=== PATIENT | female | born 1995 | race Caucasian/White ===

== ENCOUNTER 2019-07-15 13:15 | Outpatient (CLI) | payer BC, SELFPAY ==
--- NOTE | 2019-07-15 13:20 | US_ITS ---
WS: [id number] ULTRASOUND TRANSABDOMINAL HISTORY: ANATOMY/SUPERVISION NORMAL ,MULTIPAROUS : 2 PARA: 1 COMPARISON: None available. FINDINGS: Cervical length is 4.7 cm; closed. Placenta grade 0, anterior cardiac tones 147 BPM. Viable fetus normal amniotic fluid indices. Biparietal diameter measures 4.5 cm, equals 19w4d. Head circumference measures 17.0 cm, equals 19w5d. Abdomen circumference measures 13.9 cm, equals 19w2d. Femur length measures 3.0 cm, equals 19w3d. Estimated gestational age 19w4d An estimated delivery 12/05/2019. Estimated weight 290 g. US/US OB >= 14 weeks fetus 11715 IMPRESSION: 1. Single live intrauterine uterines . Estimated gestational age 19w 4d and estimated delivery 12/05/2019.
== END 2019-07-15 13:16 | disposition home or self-care (01) ==
LOC: US 13:16
PROVIDERS: Family Provider Electrodiagnostic Medicine; Visit Provider Family Medicine
DX: Z34.92 Encounter for supervision of normal pregnancy, unspecified, second trimester (principal); Z3A.19 19 weeks gestation of pregnancy; Z36.9 Encounter for antenatal screening, unspecified
CPT/HCPCS: 76805

== ENCOUNTER 2019-09-02 17:12 | Outpatient (CLI) | payer BC, MEDICAID, SELFPAY ==
[2019-09-02 17:32] VITALS: BP 119/71; PULSE 100; RESP 17; TEMP 36.4
[2019-09-02 17:47] VITALS: BMI 34.6
[2019-09-02] MEDS: cefTRIAXone 1,000 MG in sodium chloride 0.9% (plus) 50 ML 100 MG IV (18:14)
[2019-09-02] MEDS: lactated ringers 1,000 ML 999 ML IV (18:15)
[2019-09-02] MEDS: ondansetron 2 mg/ML SDV 2 mL 4 MG IVP (18:16)
[2019-09-02 18:41] LABS: Basophils % 0.3 %; Eosinophils # 0.1 10^3/uL (0.0-0.8); Eosinophils % 0.7 %; Hematocrit 33.4 % (37.0-47.0); Hemoglobin 10.8 g/dL (11.5-15.3); Lymphocytes # 1.5 10^3/uL (0.8-4.8); Lymphocytes % 17.2 %; Mean Corpuscular HGB Conc 32.3 g/dL (30.0-36.0); Mean Corpuscular Hemoglobin 28.5 pg (28.0-34.0); Mean Corpuscular Volume 88.1 fL (81-99); Mean Platelet Volume 9.3 fL (7.4-10.4); Monocytes # 0.8 10^3/uL (0.2-0.9); Monocytes % 9.4 %; Neutrophils # 6.3 10^3/uL (1.8-7.7); Neutrophils % 71.2 %; Nucleated Red Blood Cells % 0 %; Platelet Count 240 10^3/cmm (130-400); Red Blood Count 3.79 10^6/uL (4.1-5.3); Red Cell Distribution Width 14.1 % (12.1-15.1); White Blood Count 8.9 10^3/uL (4.0-10.0)
--- NOTE | 2019-09-02 19:24 | PC.NURSE ---
Pt. watching t.v. and drinking water.
[2019-09-02 19:55] LABS: Alanine Aminotransferase 23 U/L (0-33); Albumin Level 3.5 g/dL (3.5-5.2); Alkaline Phosphatase 137 IU/L (35-105); Anion Gap 16.1 (5-19); Aspartate Amino Transferase 21 U/L (0-32); Blood Urea Nitrogen 8 mg/dL (6-20); Carbon Dioxide 19 mmol/L (22-29); Chloride 103 mmol/L (98-107); Glomerular Filtration Rate 150.3 mL/min (90-130); Glucose 76 mg/dL (65-115); Osmolality Calculated 275 mOsm/kg (285-295); Potassium 3.1 mmol/L (3.5-5.1); Sodium 135 mmol/L (136-145); Total Bilirubin 0.4 mg/dL (0.15-1.2); Total Protein 6.5 g/dL (6.6-8.7)
[2019-09-02 21:15] VITALS: BP 137/73; RESP 16; TEMP 36.8
--- NOTE | 2019-09-02 21:35 | PC.NURSE ---
Discharge instructions given.
--- NOTE | 2019-09-02 21:36 | PC.NURSE ---
Pt. was instructed to take a warm shower, may use heating pad and take Tylenol for discomfort.
== END 2019-09-02 21:17 | disposition home or self-care (01) ==
LOC: OPOB 17:24 → OBGYN 21:12
PROVIDERS: Family Provider Electrodiagnostic Medicine; Visit Provider Family Medicine
DX: O21.9 Vomiting of pregnancy, unspecified (principal); R19.7 Diarrhea, unspecified
CPT/HCPCS: 36415; 59025; 80053; 85025; 86141; 96374; 96375; 99211; J0696; J2405

== ENCOUNTER 2019-09-04 08:22 | Outpatient (CLI) | payer BC, MEDICAID, SELFPAY ==
--- NOTE | 2019-09-04 | US_ITS ---
WS: [id number] RIGHT UPPER QUADRANT ULTRASOUND HISTORY: RUQ PAIN. COMPARISON: 02/13/2017 Liver: 15.0 cm in length. Normal size and echogenicity with no intrahepatic dilatation. No mass. Gallbladder: Normally distended gallbladder with no stones or wall thickening. CBD: 0.3 cm Pancreas: Normal size and echogenicity. Right kidney: 12.0 cm in length. Normal size and normal echogenicity. Mild dilatation of the renal pe lvis. Aorta and IVC: Unremarkable. No ascites. US/US gall bladder [id number] IMPRESSION: 1. Mild dilatation of the RIGHT renal pelvis. May be related to concurrent pre gnancy. 2. Negative gallbladder.
== END 2019-09-04 08:23 | disposition home or self-care (01) ==
LOC: RADWPI 08:27
PROVIDERS: Family Provider Electrodiagnostic Medicine; PCP Electrodiagnostic Medicine; Visit Provider Family Medicine
DX: R10.11 Right upper quadrant pain (principal)
CPT/HCPCS: 76705

== ENCOUNTER 2019-09-17 11:05 | Outpatient (CLI) | payer BC, MEDICAID, SELFPAY ==
[2019-09-17 11:20] VITALS: BMI 34.8
[2019-09-17 11:40] VITALS: BP 112/75; PULSE 96; RESP 16; TEMP 36.6; O2SAT 96
--- NOTE | 2019-09-17 12:15 | PC.NURSE ---
Addendum entered by Becky Issa RN 09/17/19 12:17: This rounding was performed at 1145. Original Note: Hourly Rounding Pt sitting in chair at this time, call light within reach. Given ice water and granola bar at this time.
--- NOTE | 2019-09-17 12:45 | PC.NURSE ---
Addendum entered by Becky Issa RN 09/17/19 13:06: Patient sitting up in chair, denies pain. Original Note: Hourly Rounding
[2019-09-17 12:50] VITALS: BP 106/72; PULSE 103; RESP 16; TEMP 36.6; O2SAT 98
== END 2019-09-17 13:05 | disposition home or self-care (01) ==
PROVIDERS: Family Provider Electrodiagnostic Medicine; PCP Electrodiagnostic Medicine; Visit Provider Family Medicine
DX: Z34.80 Encounter for supervision of other normal pregnancy, unspecified trimester (principal); Z31.82 Encounter for Rh incompatibility status; Z67.91 Unspecified blood type, Rh negative
CPT/HCPCS: 36415; 86850; 86900; 90384; 96372; 99211

== ENCOUNTER 2019-11-06 14:52 | Outpatient (CLI) | payer BC, MEDICAID, SELFPAY ==
[2019-11-06 15:04] VITALS: RESP 17; TEMP 36.7
[2019-11-06 15:12] VITALS: BP 111/68; PULSE 104
[2019-11-06 15:58] VITALS: BMI 36.8
[2019-11-06 16:00] LABS: Actim Prom Negative
== END 2019-11-06 16:18 | disposition home or self-care (01) ==
LOC: OPOB 15:01 → OBGYN 15:03
PROVIDERS: PCP Electrodiagnostic Medicine; Visit Provider Family Medicine
DX: O26.899 Other specified pregnancy related conditions, unspecified trimester (principal); Z3A.00 Weeks of gestation of pregnancy not specified; N89.8 Other specified noninflammatory disorders of vagina
CPT/HCPCS: 59025; 84112; 99211

== ENCOUNTER 2019-12-01 05:07 | Inpatient (IN) | payer BC, MEDICAID, SELFPAY ==
--- NOTE | 2019-11-10 08:46 | ANES.PREANE2 ---
Pre-Anesthetic Assessment Pre-Anesthetic Assessment: Height/Weight: Height 1.63 m Proposed Procedure: Operation Date: 12/01/19 07:20 Proposed Procedures p Section Repeat(Not Applicable) - Yonathan Deras MD Social: Social History: No alcohol and No tobacco Exam: Pre-Anes Outpt Exam: alert, oriented x 3, clear to auscultation bilaterally and regular rate & rhythm Airway: Submandibular: WNL Cervical ROM: WNL MP: 1 Dentition: Other (teeth ok) History/ROS: No significant history except as noted Pulmonary: Pulmonary: None reported CV/HEM: CV/HEM: None reported : : None reported Hepatic: Hepatic: None reported GI: GI: GERD Metabolic: Metabolic: None reported Musc/skel: Musc/skel: None reported Neuropsych: Neuropsych: None reported Anesthetic Plan: ASA status: 2 Anesthesia: Anesthesia Evaluation, Eval. for regional block and Regional (specify below) (SAB) Risk of > 500 ml blood loss (7ml/kg in children): Yes, adequate IV access and fluids planned Data Anesthesia Cardiac Studies: No Data to Display
[2019-12-01] VITALS (26 sets, daily range): BP systolic 97–126; BP diastolic 54–76; PULSE 76–109; RESP 16–18; TEMP 36.5–36.8; O2SAT 95–98; BMI 38.4
[2019-12-01 05:39] LABS: Basophils # 0.1 10^3/uL (0.0-0.1); Basophils % 0.4 %; Eosinophils # 0.2 10^3/uL (0.0-0.8); Eosinophils % 1.3 %; Hematocrit 32.8 % (37.0-47.0); Hemoglobin 10.2 g/dL (11.5-15.3); Lymphocytes # 3.1 10^3/uL (0.8-4.8); Lymphocytes % 24.2 %; Mean Corpuscular HGB Conc 31.1 g/dL (30.0-36.0); Mean Corpuscular Hemoglobin 26.4 pg (28.0-34.0); Mean Corpuscular Volume 84.8 fL (81-99); Mean Platelet Volume 9.5 fL (7.4-10.4); Monocytes # 0.9 10^3/uL (0.2-0.9); Neutrophils # 8.4 10^3/uL (1.8-7.7); Neutrophils % 66.2 %; Nucleated Red Blood Cells % 0 %; Platelet Count 330 10^3/cmm (130-400); Red Blood Count 3.87 10^6/uL (4.1-5.3); Red Cell Distribution Width 15.3 % (12.1-15.1); White Blood Count 12.7 10^3/uL (4.0-10.0)
[2019-12-01] MEDS: lactated ringers 1,000 ML 999 ML IV (05:45)
[2019-12-01] MEDS: lactated ringers 1,000 ML 125 ML IV (06:46)
[2019-12-01] MEDS: citric acid-sodium citrate 30 mL UDC PO (07:32)
[2019-12-01] MEDS: metoclopramide 5 mg/mL SDV 2 mL 10 MG IVP (07:32)
[2019-12-01] MEDS: famotidine 20 mg/2 mL INJ IVP (07:32)
--- NOTE | 2019-12-01 09:33 | PM.HP ---
Providers/Chief Complaint Admitting Physician: Yonathan Deras MD Primary Care Provider: Noam Beal DO Chief Complaint: csection/due date 12/06 History of Present Illness Malia Aguilar is a 24 year old at 39.1 weeks gestation by LMP consistent with 6-week ultrasound. complicated by Rh-, prior low-transverse section for arrest of dilation, elevated 1 hour GTT with normal 3-hour GTT, UTI in early third trimester, anemia. The patient presents to labor and delivery triage secondary to a scheduled repeat low-transverse section with bilateral tubal ligation. The patient is feeling well at this time. She denies any chest pains, shortness of breath, fever, cough, leakage of fluid, vaginal bleeding, contractions. Overall she feels well. Medications/Allergies Home Medications Medication Instructions Recorded Confirmed Last Taken Type [id number] fumarate-FA 1 tab PO DAILY 09/02/19 11/06/19 11/05/19 22:15 History [] nitrofurantoin monohyd/m-cryst 100 mg PO BID 09/02/19 09/02/19 09/02/19 07:30 History [Macrobid] Allergies Allergy/AdvReac Type Severity Reaction Status Date / Time No Known Allergies Allergy Verified 09/02/19 18:41 PFSH Acute PFSH: Surgical History (Updated 12/01/19 @ 09:37 by Yonathan Deras MD) History of low transverse section Social History (Updated 12/01/19 @ 09:38 by Yonathan Deras MD) Smoking and tobacco status: never smoked Alcohol intake: never Substance/Drug Use: never Female Reproductive History: : 2 Vitals/I&O/Wt Last Vital Signs Temp 97.7 F 12/01/19 05:28 Pulse 109 H 12/01/19 05:13 Resp 18 12/01/19 05:28 BP 126/76 12/01/19 05:13 11/30/19 12/01/19 12/01/19 22:59 06:59 14:59 Intake Total 91.667 / 91.667 Balance 91.667 / 91.667 Weight last 48 hrs Weight 217 lb Physical Exam Narrative: EXAM NARRATIVE: General: Alert and oriented x3 Eyes: Pupils equal round and reactive to light and accommodation Mouth: Mucous membranes moist, pharynx non-erythematous Cardiac: Regular rate and rhythm without murmurs Lungs: Clear to auscultation bilaterally without wheezes, crackles or rhonchi Abdomen: Soft, non-tender, fundus consistent with gestational age Extremities: Trace edema in the bilateral lower extremities Data : 12/01/19 05:30 A&P Additional A&P Information Malia Aguilar is a 24 year old at 39.1 weeks gestation by LMP consistent with 6-week ultrasound. complicated by Rh-, prior low-transverse section for arrest of dilation, elevated 1 hour GTT with normal 3-hour GTT, UTI in early third trimester, anemia. The patient is doing well at this time. She concurs that she is sure that she would like to have a bilateral tubal ligation. The patient's questions were answered regarding section. Proceed with routine repeat low-transverse section with planned bilateral tubal ligation. Attestations Medical Necessity Statement*: The patient will be here for greater than 2 midnights due to routine intrapartum and management of section. Coding Level of Care Code Acute Camera Systems Engineer for Clive Whitlock
--- NOTE | 2019-12-01 09:39 | PM.OP ---
Operative Report Date of procedure: December 01, 2019 Pre-op Diagnosis: 1. Intrauterine at 39.1 weeks gestation 2. Prior low-transverse section 3. Desire for sterilization 4. Anemia 5. UTI and third trimester 6. Elevated 1 hour GTT with normal 3-hour GTT Post-op Diagnosis: 1. Delivery of healthy infant female weighing 7 pounds 12 ounces 2. Intrauterine status post repeat low transverse section with bilateral tubal ligation 3. Anemia 4. UTI during third trimester 5. Elevated 1 hour GTT with normal 3-hour GTT Procedure Done: Repeat low transverse section with bilateral tubal ligation Specimens removed/disposition: Placenta discarded Surgeon: Yonathan Deras Academic Advisor: Jen Estimated blood loss (mL): 600 Complications: None Brief History: Malia Aguilar is a 24 year old at 39.1 weeks gestation by LMP consistent with 6-week ultrasound. complicated by Rh-, prior low-transverse section for arrest of dilation, elevated 1 hour GTT with normal 3-hour GTT, UTI in early third trimester, anemia. She presented for a scheduled repeat low-transverse section with bilateral tubal ligation. She was in her normal state of health prior to delivery. Procedure: After informed consent was obtained, the patient was taken to the operating room and the patient was prepped and draped in normal sterile fashion in dorsal supine position. A spinal epidural was placed and adequate anesthesia was confirmed. At 8:13 AM on 12/01/2019, a Pfannenstiel skin incision was made and carried through to the underlying layer of fascia using a scalpel. The fascial incision was then extended laterally using curved Mayos. The fascia was then grasped with Tennille clamps and the underlying rectus muscles were dissected off taking care to avoid injury to the underlying tissues. The peritoneum was entered bluntly with one digit. The bladder blade was placed and the vesicouterine peritoneum was well below the lower uterine segment of the uterus. The uterine incision was made in the lower uterine segment in a transverse fashion with the scalpel at 8:16 AM. The amniotic membrane was entered bluntly and a small amount of clear fluid was noted. The infant's head delivered atraumatically without difficulty at 8:17 AM on 12/01/2019. There was no nuchal cord. The mouth and nose were suctioned. The rest of the infant delivered without difficulty. The infant was crying immediately upon delivery. The cord was clamped and cut and the infant was handed to the awaiting pediatric nurses. The placenta was then manually expressed. The uterus was then exteriorized from the abdomen and a wet lap was used to clear the uterus of clots and debris. The bladder blade was reinserted and the uterine incision was closed using 0 chromic in a running locking fashion. A second layer of the same suture was used in the same manner. Excellent hemostasis was obtained. The patient's bilateral tubes were then inspected. A modified Dan[place] technique was used to carry out the tubal ligation. The right fallopian tube was held up using Babcocks and a window was made underneath the right fallopian tube using cautery. 0 chromic was used to tie off the right fallopian tube and a portion of the tube was removed using Metzenbaums. The exposed tube was cauterized. Excellent hemostasis was noted. The left fallopian tube segment was removed in the same manner. Next the posterior cul-de-sac was inspected and was cleared of any blood. The uterus was then placed back into the abdomen. The gutters were cleared of any further clots and debris and the uterine incision was again inspected and hemostasis was noted. The subfascial tissue was inspected for hemostasis and the peritoneum was reapproximated using 2-0 plain in a running fashion. The fascia was then reapproximated using 0 Vicryl in a running fashion. The subcutaneous tissue was inspected for hemostasis. Jennifer's fascia was then reapproximated using 3-0 plain in a running fashion. Good hemostasis was noted. The subcutaneous tissue was then reapproximated using a subcuticular stitch. The patient tolerated the procedure well and was recovered in stable condition. Estimated blood loss was 500 mL. Urine in the Vásquez catheter was clear. The patient was taken to recovery in good condition.
[2019-12-01] MEDS: dextrose 5%-lactated ringers 1,000 ML 125 ML IV ×2 (10:18→18:17)
[2019-12-01] MEDS: ketorolac 30 mg/mL INJ IVP ×3 (10:18→21:49)
[2019-12-01] MEDS: ondansetron 2 mg/ML SDV 2 mL 4 MG IVP (11:04)
[2019-12-01] MEDS: promethazine 25 mg Tablet PO (18:11)
--- NOTE | 2019-12-01 21:30 | PC.NURSE ---
Patient up to chair in room x 1 assist. Patient tolerates activity well. No c/o nausea at this time. NITIN RN
--- NOTE | 2019-12-01 23:00 | PC.NURSE ---
Patient up to ambulate OBGYN unit with this nurse. Patient tolerates activity well. Will continue to monitor. NITIN BABIN
[2019-12-02] VITALS (7 sets, daily range): BP systolic 97–114; BP diastolic 58–78; PULSE 70–102; RESP 16–18; TEMP 36.6–37.1; O2SAT 96
--- NOTE | 2019-12-02 02:17 | PC.NURSE ---
Catheter removed per protocol NITIN RN
[2019-12-02 05:11] LABS: Hematocrit 31.8 % (37.0-47.0); Hemoglobin 9.9 g/dL (11.5-15.3); Mean Corpuscular HGB Conc 31.1 g/dL (30.0-36.0); Mean Corpuscular Hemoglobin 27.1 pg (28.0-34.0); Mean Corpuscular Volume 87.1 fL (81-99); Mean Platelet Volume 9.9 fL (7.4-10.4); Platelet Count 321 10^3/cmm (130-400); Red Blood Count 3.65 10^6/uL (4.1-5.3); Red Cell Distribution Width 15.2 % (12.1-15.1); White Blood Count 13.7 10^3/uL (4.0-10.0)
--- NOTE | 2019-12-02 06:37 | PC.NURSE ---
Rhogam injection given at this time. NITIN BABIN
--- NOTE | 2019-12-02 08:00 | PM.PN ---
Subjective Subjective: Interval history: The patient is feeling better today. She no longer has nausea after a one-time dose of promethazine. The patient's pain has increased as she did not receive ibuprofen due to concern with the nausea. She is able to ambulate, void, pass gas and has had a bowel movement. She is now tolerating food by mouth. Her bleeding is slow at this time. Vitals/I&O/Wt Last Vital Signs Temp 98.8 F 12/02/19 06:28 Pulse 82 12/02/19 06:28 Resp 16 12/02/19 06:28 BP 97/59 12/02/19 06:28 Pulse Ox 96 12/01/19 22:00 12/01/19 12/02/19 12/02/19 22:59 06:59 14:59 Intake Total 1258.25 / 4699.917 1 / 4700.917 Output Total 350 / 1450 250 / 1700 Balance 908.25 / 3249.917 -249 / 3000.917 Weight last 48 hrs Weight 217 lb Physical Exam Narrative: EXAM NARRATIVE: General: Alert and oriented x3 Eyes: Pupils equal round and reactive to light and accommodation Mouth: Mucous membranes moist, pharynx non-erythematous Cardiac: Regular rate and rhythm without murmurs Lungs: Clear to auscultation bilaterally without wheezes, crackles or rhonchi Abdomen: Soft, mild to moderate tenderness diffusely. Incision is clean and dry without signs of infection or dehiscence. Extremities: +1 pitting edema in the bilateral lower extremities Urinary Catheter Management^: Vásquez: Cath Placed During This Visit: yes Reason for Continuing Indwelling Catheter: Accurate Measurement of Urinary Output in Critically Ill Patients Urinary Catheter Date of Insertion: 12/01/19 Urinary Catheter Time of Insertion: 08:00 Data : 12/01/19 21:10 A&P Assessment and plan (1) Intrauterine : Status: Acute (2) Anemia: Status: Acute Additional A&P Information Malia Aguilar is a 24 year old G2 now P2 status post repeat low transverse section with bilateral tubal ligation at 39.1 weeks gestation by LMP consistent with 6-week ultrasound. complicated by Rh-, prior low-transverse section for arrest of dilation, elevated 1 hour GTT with normal 3-hour GTT, UTI in early third trimester, anemia. The patient is improving well at this point. Her nausea is improving. We will continue to work on pain management and encourage ambulation. If she continues to do well we will plan for discharge home tomorrow. Her hemoglobin is stable at this time. All questions were answered. Attestations Medical Necessity Statement*: The patient will be here for greater than 2 midnights due to routine intrapartum and management of section. Coding Level of Care Code Acute Flame Cutting Machine Operator Helper for Chg Fwd Diagnoses Intrauterine Z34.90 Anemia D64.9
[2019-12-02] MEDS: ferrous sulfate EC 325 mg Tablet PO (09:37)
[2019-12-02] MEDS: prenatal vitamin Capsule 1 CAP PO (09:37)
[2019-12-02] MEDS: oxyCODONE-APAP 5-325 mg Tablet PO (12:32)
[2019-12-02] MEDS: docusate sodium 100 mg Capsule PO (21:00)
[2019-12-03 00:15] VITALS: RESP 18
[2019-12-03] MEDS: oxyCODONE-APAP 5-325 mg Tablet PO (00:15)
[2019-12-03 05:50] VITALS: BP 128/88; PULSE 96; RESP 16; TEMP 36.9
--- NOTE | 2019-12-03 08:22 | P.DS_ITS ---
Discharge Providers Date of Admission: 12/01/19 05:07 Date of Discharge: December 03, 2019 Attending Provider at Admission: Yonathan Deras MD Attending Provider at Discharge: Yonathan Deras MD Primary Care Provider: Noam Beal DO Diagnoses at Discharge Discharge Diagnosis (1) Intrauterine : Status: Resolved (2) Anemia: Status: Acute Other Information Additional DC diagnoses/information: 1. Delivery of healthy infant female weighing 7 pounds 12 ounces 2. Intrauterine status post repeat low transverse section with bilateral tubal ligation 3. Anemia 4. UTI during third trimester 5. Elevated 1 hour GTT with normal 3-hour GTT Reason for Visit Reason for Visit: csection/due date 12/06 Hospital Course Hospital Course: Malia Aguilar is a 24 year old G2 now P2 status post repeat low transverse section with bilateral tubal ligation at 39.1 weeks gestation by LMP consistent with 6-week ultrasound. complicated by Rh-, prior low-transverse section for arrest of dilation, elevated 1 hour GTT with normal 3-hour GTT, UTI in early third trimester, anemia. The patient presented for a scheduled repeat low-transverse section. The patient had an uncomplicated delivery and received a bilateral tubal ligation. Postoperatively the patient did have some nausea which resolved with promethazine. The patient has been ambulating, voiding, passing gas and tolerating food by mouth. The patient is showing no signs of complications with her incision site. Routine discharge instructions were given and she will follow-up with me in clinic over the next week. The patient and her are in agreement with discharge home at this time. Physical Exam Narrative: EXAM NARRATIVE: General: Alert and oriented x3 Eyes: Pupils equal round and reactive to light and accommodation Mouth: Mucous membranes moist, pharynx non-erythematous Cardiac: Regular rate and rhythm without murmurs Lungs: Clear to auscultation bilaterally without wheezes, crackles or rhonchi Abdomen: Soft, mild to moderate tenderness diffusely. Incision is clean and dry without signs of infection or dehiscence. Extremities: +1 pitting edema in the bilateral lower extremities Urinary Catheter Management^: Vásquez: Cath Placed During This Visit: yes, but has since been removed by the nurse Reason for Continuing Indwelling Catheter: Other Urinary Catheter Date of Insertion: 12/01/19 Urinary Catheter Time of Insertion: 08:00 Date Urinary Catheter Removed: 12/01/19 Time Urinary Catheter Discontinued: 04:00 Discharge Data Vitals: Last Vital Signs Temp 98.4 F 12/03/19 05:50 Pulse 96 12/03/19 05:50 Resp 16 12/03/19 05:50 BP 128/88 12/03/19 05:50 Pulse Ox 96 12/02/19 18:42 Discharge Plan Discharge Patient Disposition: Home, Self-Care Condition: Good Prescriptions: New ibuprofen 800 mg Tablet 800 mg PO TID Qty: 60 RF: 0 oxycodone-acetaminophen 5-325 mg Tablet 1 tab PO Q6H PRN (Reason: Moderate To Severe Pain) Qty: 20 RF: 0 ferrous sulfate 325 mg (65 mg iron) Tablet,Delayed Release (Dr/Ec) 325 mg PO BIDWM Qty: 60 RF: 0 Continued 28-800 mg-mcg Tablet 1 tab PO DAILY RF: 0 Tums 200 mg calcium (500 mg) Tablet,Chewable 200 mg PO QID RF: 0 Discontinued nitrofurantoin monohyd/m-cryst [Macrobid] 100 mg Capsule 100 mg PO BID RF: 0 Discharge Orders: Discharge Order (Routine); Ordered 12/03/19 Ordered By: Yonathan Deras Referrals: Yonathan Deras MD [Physician] - 12/10/19 12:00 pm (Your one week incsion check with Dr. Deras will be November, at 1200. Your [address] Deras will be Tuesday January 14, 2020 at 0900.) Discharge Diet: Regular Discharge Activity: Limit activity as instructed Patient Instructions: , Iron Supplements (By mouth), Ibuprofen (By mouth), Oxycodone/Acetaminophen (By mouth), Lanolin (On the skin), Section (DC), Your Baby (DC), and the Working Mom (DC), Expression, Collection and Storage of Breastmilk (DC), How to Hold and Breastfeed Your Baby (DC), and Nipple Soreness (DC), Breast Fullness Versus Breast Engorgement (DC), and Plugged Ducts (DC), How to Increase Your Milk Supply (DC), How to Tell if Your Baby is Getting Enough Breast Milk (DC), and Your Diet (DC), Bleeding (DC), OB Discharge Report, OB Food/Drug Interaction Guide, OB [facility] - [facility], Abnormal Bleeding, Depression Activity Restrictions/Additional Instructions: If there is any concern for infection in your incision site, please seek immediate medical care. Do not lift anything heavier than your in the car seat for the first 3 weeks, then gradually increase. Nothing per vagina for 6 weeks. Discharge Date/Time: 12/03/19 10:10 Discharge Attestations Time Spent in Discharge Care*: greater than 30 min Quality Metrics Clinical Quality Measures During this hospital stay, did patient experience: None Coding Level of Care Code Acute Metal Room Dental Technician for Chg Fwd Diagnoses Intrauterine Z34.90 Anemia D64.9
[2019-12-03] MEDS: prenatal vitamin Capsule 1 CAP PO (08:32)
[2019-12-03] MEDS: ferrous sulfate EC 325 mg Tablet PO (08:32)
[2019-12-03] MEDS: docusate sodium 100 mg Capsule PO (08:34)
[2019-12-03 09:45] VITALS: BP 120/82; PULSE 100; RESP 16; TEMP 36.5; O2SAT 96
== END 2019-12-03 10:10 | disposition home or self-care (01) | DRG 785 ==
PROVIDERS: Admitting Provider Family Medicine; PCP Electrodiagnostic Medicine; Visit Provider Family Medicine
PROC: 10D00Z1 Extraction of Products of Conception, Low, Open Approach (ICD-10-PCS; CPT 59514; principal; 2019-12-01 07:00)
DX: O34.211 Maternal care for low transverse scar from previous cesarean delivery (principal); O99.02 Anemia complicating childbirth; D64.9 Anemia, unspecified; Z37.0 Single live birth; N85.8 Other specified noninflammatory disorders of uterus; Z3A.39 39 weeks gestation of pregnancy; Z30.2 Encounter for sterilization
CPT/HCPCS: 12345; 36415; 36430; 51702; 58611; 59025; 59409; 85025; 85027; 85460; 86850; 86900; 88302; 90384; 96372; 96375; J0690; J1885; J2274; J2370; J2405; J2590; J2765; J3490; J7030; Q0169

== ENCOUNTER → 2021-07-08 15:21 | Outpatient (BNVA) | payer BC, SELFPAY | PROVIDERS: PCP Electrodiagnostic Medicine; Referring Provider Family Medicine; Visit Provider Podiatrist Foot & Ankle Surgery | DX: M79.672 Pain in left foot (principal) | CPT/HCPCS: 73630 ==

== ENCOUNTER 2024-09-22 15:15 | Outpatient (CLI) | payer BC, SELFPAY ==
--- NOTE | 2024-09-22 15:49 | US_ITS ---
WS: [id number] US pelv w/transvag [id number] HISTORY: LLQ PAIN COMPARISON: 08/29/2017 Uterus: 9.7 cm x 5.7 cm x 4.8 cm. Minimally enlarged uterus. No fibroid or mass. Endometrium: 0.7 cm. Normal. Neither ovary is identified. Ovaries are obscured by gastrointestinal content. There is a small cyst posterior to the uterus which may be a follicle associated with the RIGHT ovary. No free fluid in the cul-de-sac. US/US pelv w/transvag [id number] IMPRESSION: 1. Mild uterine enlargement, similar to the prior study from 2018. 2. Normal endometrium. 3. Neither ovary is identified.
== END 2024-09-22 15:16 | disposition home or self-care (01) ==
LOC: RAD 15:17
PROVIDERS: PCP Electrodiagnostic Medicine; Visit Provider Nurse Practitioner Family
DX: R10.32 Left lower quadrant pain (principal); N94.89 Other specified conditions associated with female genital organs and menstrual cycle
CPT/HCPCS: 76830; 76856